=== PATIENT | female | born 1970 | race Caucasian/White ===

== ENCOUNTER 2017-09-23 10:33 | Emergency (ER) | payer OTHER ==
[~2017-09-23] VITALS: Ht 152.4 cm; Wt 81.6 kg
[~2017-09-23 10:33] MED LIST: ADVAIR 100-501 EACH INH; ADVAIR DISKUS 21 DSK INH; ALPRAZOLAM1 M2 PO; CIPRO500 M1 PO; COPAXONE 20M20 MG/ML SC; DILAUDID2 MG PO; LEXAPRO 10MG10 MG PO; LIDODERM 5% PAT1 PAT TOP; MEDROL4 M1 PO; NEURONTIN300 M1 PO; NEXIUM40 M1 PO; OXYCODONE HCL5 M1 PO; PERCOCET 325 MG1 TA2 PO; PREDNISONE5 MG PO; PROAIR HFA8.5 GM INH; SINGULAIR10 M1 PO
[2017-09-23 11:33] LABS: ABSOLUTE BASOPHIL COUNT 0.1 /CUMM (0.0-0.2); ABSOLUTE EOSINOPHIL COUNT 0.1 /CUMM (0.0-0.7); ABSOLUTE LYMPH COUNT 1.5 /CUMM (1.2-3.4); ABSOLUTE MONOCYTE COUNT 0.4 /CUMM (0.10-0.60); BASOPHIL % 0.9 % (0.0-2.0); EOSINOPHIL % 1.4 % (0-5); GRANULOCYTE % 74.7 % (42.2-75.2); MEAN CORPUSCULAR HGB 29.6 PG (27.0-31.0); MEAN CORPUSCULAR HGB CONC 34.7 G/DL (33.0-37.0); MEAN CORPUSCULAR VOLUME 85.3 FL (81.0-99.0); MEAN PLATELET VOLUME 9.1 FL (7.4-10.4); PLATELET COUNT 299 /CUMM (130-400); RBC DISTRIBUTION WIDTH 13.3 % (11.5-14.5); RED BLOOD CELL CT 4.57 /CUMM (4.20-5.40)
--- NOTE | 2017-09-23 11:36 | ED GI/GU/ABDOMINAL COMPLAINT ---
History of Present Illness General Chief Complaint: Abdominal Pain/Flank Pain Stated Complaint: ABD PAIN Source: patient Exam Limitations: no limitations Vital Signs & Intake/Output Vital Signs & Intake/Output Vital Signs Date Time Temp Pulse Resp B/P B/P Pulse O2 O2 Flow FiO2 Mean Ox Delivery Rate 09/23 1251 97.8 78 18 145/85 99 Room Air 09/23 1036 97.7 69 16 97 Room Air Allergies Coded Allergies: hydrocodone (From VICODIN) (Mild, RASH 12/04/15) Iodinated Contrast- Oral and IV Dye (ANAPHYLAXIS 09/23/17) aspirin (asthma 12/04/15) azithromycin (UNKNOWN 12/04/15) cheese (ANAPHYLAXIS 12/04/15) divalproex sodium (From DEPAKOTE) (UNKNOWN 12/04/15) ketorolac (From TORADOL) (asthma 12/04/15) lactose (DAIRY FOODS, CHEESE - ANAPHYLAXIS 12/04/15) latex (SHORTNESS OF BREATH 12/04/15) milk (ANAPHYLAXIS 12/04/15) moxifloxacin (From AVELOX) (UNKNOWN 12/04/15) shellfish derived (ANAPHYLAXIS 12/04/15) sulfamethoxazole (From BACTRIM) (UNKNOWN 12/04/15) tramadol (asthma 12/04/15) trimethoprim (From BACTRIM) (UNKNOWN 12/04/15) Reconcile Medications Albuterol Sulfate (Proair Hfa) 90 MCG HFA.AER.AD 2 PUF INH Q4-6 PRN PRN ASTHMA (Reported) Alprazolam 1 MG TABLET 1 TAB PO TID ANXIETY (Reported) Ciprofloxacin HCl (Cipro) 500 MG TABLET 1 TAB PO BID uti Esomeprazole (Nexium) 40 MG CAPSULE.DR 1 CAP PO DAILY GI (Reported) Fluticasone-Salmeterol (Advair 100-50 Diskus) 100 MCG-50 MCG/DOSE BLST.W.DEV 1 PUF INH BID BREATHING PROBLEMS (Reported) Gabapentin (Neurontin) 300 MG CAPSULE 1 CAP PO TID NEUROPATHY (Reported) Montelukast Sodium (Singulair) 10 MG TABLET 1 TAB PO DAILY ALLERGIES ( Reported) Triage Note: 47 Y/O FEMALE C/O LLQ PAIN RADIATING INTO L FLANK X 1 MONTH. STATES PAIN IS "CONSTANT, SHARP AND AT TIMES ACHY". REPORTS "ITS SWOLLEN IN THAT AREA, WHERE MY OVARY IS". PT REPORTS HX R OVARIAN REMOVAL IN 2016. +NAUSEA. DENIES VOMITING. DENIES HEMATURIA BUT STATES "I FEEL LIKE I HAVE OT GO ALL THE TIME". AFEBRILE. Triage Nurses Notes Reviewed? yes LMP (ages 10-50): hysterectomy, unknown ? N Is pt currently ? No Onset: Gradual Duration: week(s): (6), constant, continues in ED Timing: single episode today Quality/Severity: sharpness, stabbing, throbbing Severity Numbers: 8 Location: left flank, left lower quadrant, suprapubic Radiation: back Activities at Onset: none Prior Abdominal Problems: similar symptoms Past Sexual History: Unobtainable at this time No Modifying Factors: none Modifying Factors: Worsens With: palpation. Associated Symptoms: abdominal pain, urinary frequency HPI: 47-year-old female past medical history of multiple sclerosis, fibromyalgia presents for evaluation of abdominal pain. Patient states she has had pain in her left lower quadrant left flank and left lower back for the past 6 weeks. This pain is gradually been getting worse. The pain is located in the left lower quadrant and radiates in the left flank and left lower back. Described as sharp. She's been taking Tylenol with mild improvement. She does report some associated nausea but no vomiting. She's had intermittent diarrhea and constipation alternating. She also reports she's had urinary frequency and has a history of UTIs. No dysuria. No hematuria. Patient reports that 2 years ago she had a hysterectomy and right-sided OOPHRECTOMY/SALPINGECTOMY related to ovarian cysts. She reports this pain feels similar but on the other side now. She denies any vaginal discharge or bleeding. She's had no fever. (Beau Dukes) Past History Travel History Traveled to [place] past 21 day No Medical History Any Pertinent Medical History? 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 No (Beau Dukes) Review of Systems Review of Systems Constitutional: Reports: no symptoms. EENTM: Reports: no symptoms. Respiratory: Reports: no symptoms. Cardiovascular: Reports: no symptoms. GI: Reports: see HPI, abdominal pain, nausea. Genitourinary: Reports: frequency. Musculoskeletal: Reports: back pain. Skin: Reports: no symptoms. Neurological/Psychological: Reports: no symptoms. Hematologic/Endocrine: Reports: no symptoms. Immunologic/Allergic: Reports: no symptoms. All Other Systems: Reviewed and Negative (Beau Dukes) Physical Exam Physical Exam General Appearance: well developed/nourished, no apparent distress, alert, awake Head: atraumatic, normal appearance Eyes: Bilateral: normal appearance, PERRL, EOMI. Ears, Nose, Throat, Mouth: hearing grossly normal, moist mucous membrane Neck: normal inspection, supple, full range of motion Respiratory: normal breath sounds, chest non-tender, no respiratory distress, lungs clear Cardiovascular: regular rate/rhythm, normal peripheral pulses Peripheral Pulses: 2+ radial (R), 2+ radial (L) Gastrointestinal: normal bowel sounds, soft, no organomegaly, tenderness (LLQ, LEFT PELVIS ) Back: normal inspection, normal range of motion, no vertebral tenderness Extremities: normal range of motion Neurologic/Psych: no motor/sensory deficits, awake, alert, oriented x 3, normal gait, normal mood/affect Skin: intact, normal color, warm/dry Core Measures ACS in differential dx? No Sepsis Present: No Sepsis Focused Exam Completed? No (Beau Dukes) Progress Differential Diagnosis: appendicitis, biliary colic, bowel obstruction, cholecystitis, diverticulitis, inflamm bowel dis, kidney stone, ovarian cyst, ovarian torsion, PID/cervicitis, perforated viscous, SBO, UTI/pyelo Plan of Care: Orders Procedure Date/time Status Add-on Test (ER Only) 09/23 1202 Active CULTURE,URINE 09/23 1122 Active URINALYSIS 09/23 1058 Complete LIPASE 09/23 1058 Complete COMPREHENSIVE METABOLIC PANEL 09/23 1058 Complete CBC WITHOUT DIFFERENTIAL 09/23 1058 Complete AMYLASE 09/23 1058 Complete Laboratory Tests 09/23/17 1122: Anion Gap 15, Estimated GFR > 60, BUN/Creatinine Ratio 16.7, Glucose 91, Calcium 9.5, Total Bilirubin 0.5, AST 19, ALT 24, Alkaline Phosphatase 55, Total Protein 7.1, Albumin 3.9, Globulin 3.2, Albumin/Globulin Ratio 1.2, Amylase 65, Lipase 126, CBC w Diff NO MAN DIFF REQ, RBC 4.57, MCV 85.3, MCH 29.6, MCHC 34.7, RDW 13.3, MPV 9.1, Gran % 74.7, Lymphocytes % 18.6 L, Monocytes % 4.4, Eosinophils % 1.4, Basophils % 0.9, Absolute Granulocytes 6.0, Absolute Lymphocytes 1.5, Absolute Monocytes 0.4, Absolute Eosinophils 0.1, Absolute Basophils 0.1, Urine Color YEL, Urine Clarity CLDY H, Urine pH 6.5, Ur Specific [place] 1.020, Urine Protein NEG, Urine Ketones NEG, Urine Nitrite POS H, Urine Bilirubin NEG, Urine Urobilinogen 0.2, Ur Leukocyte Esterase SMALL H, Ur Microscopic SEDIMENT EXAMINED, Urine RBC RARE, Urine WBC 10-15 H, Ur Epithelial Cells MANY H, Urine Bacteria MANY H, Urine Hemoglobin NEG, Urine Glucose NEG Microbiology 09/23 1122 URINE ROUT: Urine Culture - RECD Patient is here with left lower quadrant and left pelvic pain that has been present for 6 weeks now. She had similar symptoms several years ago related to ovarian cysts. She denies any fever chest pain shortness of breath. She also has urinary frequency. Labs CT scan ordered patient declines pain medication. Urine is showing signs of infection urine culture ordered. Blood work is not showing any significant findings. CT scan shows bilateral adnexal cysts biggest on the left. Ultrasound was ordered for BeTter characterization. Ultrasound shows a left-sided ovarian cyst nothing is seen on the right. No signs of torsion. Reviewed results with patient. Advised her to follow with her GAGE DESIGNER doctor Dr. Whitehead as soon as possible. Continue Tylenol as needed. Patient declines any pain medication prescription. Patient will be given a prescription for antibiotics due to signs of infection in the urine. Discussed return precautions in detail. Patient agrees the plan Diagnostic Imaging: Viewed by Me: CT Scan. Discussed w/RAD: CT Scan. Radiology Impression: PATIENT: MARCUS MELGOZA PRESENT AGE : 47 PATIENT ACCOUNT NO: [id number] : 70 LOCATION: [facility] ORDERING PHYSICIAN: Beau OLIVEROS SERVICE DATE: 09/23/17115 EXAM TYPE: CAT - CT ABD & PELVIS W/O IV CONTRAS EXAMINATION: CT ABDOMEN AND PELVIS WITHOUT CONTRAST CLINICAL INFORMATION: Left lower quadrant pain radiating to the back. COMPARISON : 12/04/2015 TECHNIQUE: Multidetector volumetric imaging was performed from the superior aspect of the liver through the pubic symphysis. Sagittal and coronal reformatted images were obtained on the technologist's workstation. DLP: 543 mGy -cm FINDINGS: LUNG BASES: The visualized lung bases are unremarkable. LIVER, GALLBLADDER, AND BILIARY TREE: The liver is normal in size, shape, and attenuation. No focal hepatic lesion or biliary ductal dilatation is present. The gallbladder is unremarkable with no evidence of radiopaque gallstones, gallbladder wall thickening, or obvious pericholecystic inflammatory changes. PANCREAS: Unremarkable. SPLEEN: Unremarkable. ADRENAL GLANDS: Unremarkable. KIDNEYS AND URETERS: The kidneys are normal in size, shape, and attenuation. No hydronephrosis, hydroureter, or calculi seen. No perinephric stranding. BLADDER: Unremarkable. GASTROINTESTINAL TRACT: The stomach is unremarkable. The small bowel is normal in caliber. No obstruction. No colonic wall thickening or inflammatory change. No free air or free fluid. ABDOMINAL WALL: No significant hernia is appreciated. LYMPH NODES: Normal. VASCULAR: Unremarkable. PELVIC VISCERA: The uterus is not seen, likely absent. Bilateral adnexal cystic lesions. The largest is seen in the left adnexa measuring 4.7 cm. The appearance is similar to the prior study. OSSEOUS STRUCTURES: No acute or suspicious osseous abnormality. Mild degenerative changes of the spine. IMPRESSION: No acute inflammatory changes. Redemonstration of bilateral adnexal cysts, greatest in the left. This is similar to the prior study. No hydronephrosis or nephrolithiasis. DICTATED BY: Hussein PIERRE,Jean Paul DATE/TIME DICTATED:09/23/171220 UTILITY MAINTENANCE WORKER:VALE DATE/TIME TRANSCRIBED:09/23/171220 CONFIDENTIAL, DO NOT COPY WITHOUT APPROPRIATE AUTHORIZATION., PRESENT AGE: 47 PATIENT ACCOUNT NO: [id number] : 70 LOCATION: [facility] ORDERING PHYSICIAN: Beau OLIVEROS SERVICE DATE: 09/23/175 EXAM TYPE: US - US-TRANSVAGINAL EXAMINATION: ULTRASOUND OF THE PELVIS CLINICAL INFORMATION: Left pelvic pain with history of cysts.. COMPARISON: CT from earlier today. Ultrasound from 04/22.. TECHNIQUE: Transabdominal and transvaginal pelvic ultrasound. Doppler evaluation with spectral analysis was performed. A transvaginal study was performed in addition to the transabdominal study which did not yield an adequate examination of the uterus and ovaries due to superimposed distended gas -filled loops of bowel. FINDINGS: Status post hysterectomy. Nabothian cysts are seen at the remaining cervical tissue. The patient is status post right oophorectomy. The left ovary is identified measuring 6.7 x 4 x 4 cm. Normal arterial and venous spectral waveforms are present at the left ovary. There are multiple cysts present. The largest measures 4.6 x 3.2 x 4.1 cm. There is a complex cyst which measures 2.1 x 1.2 x 1.3 cm. Internal echoes are noted without associated Doppler flow. This appearance corresponds to the CT performed earlier in the day as well as to the CT from 12/04/2015. No free fluid. IMPRESSION: Redemonstration of left ovarian cysts, similar appearance to the CT performed earlier in the day and the CT from 12/04/2015. Since the prior ultrasound, the right ovary has been removed. No evidence of active ovarian torsion at this time.. DICTATED BY: Hussein PIERRE,Jean Paul DATE/TIME DICTATED:1348 UTILITY MAINTENANCE WORKER:VALE DATE/TIME TRANSCRIBED:09/23/171348 CONFIDENTIAL, DO NOT COPY WITHOUT APPROPRIATE AUTHORIZATION. <Electronically signed in Other Vendor System> SIGNED BY: Hussein PIERRE,Jean Paul 09/23/17 6107 Initial ED EKG: none (Beau Dukes) Departure Departure Disposition: HOME OR SELF CARE Condition: Stable Clinical Impression Primary Impression: Ovarian cyst Qualifiers: Laterality: left Qualified Code: N83.202 - Unspecified ovarian cyst , left side Secondary Impressions: UTI (urinary tract infection) Qualifiers: Urinary tract infection type: acute cystitis Hematuria presence: without hematuria Qualified Code: N30.00 - Acute cystitis without hematuria Referrals: Fernando PIERRE,Jeffery Araiza (PCP/Family) Ventura PIERRE,Danielle Barr Additional Instructions: rest and drink plently of fluids. take antibiotics for full course. tylenol for pain. follow up with Dr Ventura RUVALCABA. Departure Forms: Customer Survey General Discharge Information Prescriptions: Current Visit Scripts Ciprofloxacin HCl (Cipro) 1 TAB PO BID #14 TAB (Beau Dukes) PA/VENEER JOINTER HELPER Co-Sign Statement Statement: ED Attending supervision documentation- [] I saw and evaluated the patient. I have also reviewed all the pertinent lab results and diagnostic results. I agree with the findings and the plan of care as documented in the PA's/VENEER JOINTER HELPER's documentation. [X] I have reviewed the ED Record and agree with the PA's/VENEER JOINTER HELPER's documentation. [] Additions or exceptions (if any) to the PAs/VENEER JOINTER HELPER's note and plan are summarized below: [] (Roney Garg DO)
--- NOTE | 2017-09-23 12:29 | CT SCAN REPORT ---
EXAMINATION: CT ABDOMEN AND PELVIS WITHOUT CONTRAST CLINICAL INFORMATION: Left lower quadrant pain radiating to the back. COMPARISON: 12/04/2015 TECHNIQUE: Multidetector volumetric imaging was performed from the superior aspect of the liver through the pubic symphysis. Sagittal and coronal reformatted images were obtained on the technologist's workstation. DLP: 543 mGy-cm FINDINGS: LUNG BASES: The visualized lung bases are unremarkable. LIVER, GALLBLADDER, AND BILIARY TREE: The liver is normal in size, shape, and attenuation. No focal hepatic lesion or biliary ductal dilatation is present. The gallbladder is unremarkable with no evidence of radiopaque gallstones, gallbladder wall thickening, or obvious pericholecystic inflammatory changes. PANCREAS: Unremarkable. SPLEEN: Unremarkable. ADRENAL GLANDS: Unremarkable. KIDNEYS AND URETERS: The kidneys are normal in size, shape, and attenuation. No hydronephrosis, hydroureter, or calculi seen. No perinephric stranding. BLADDER: Unremarkable. GASTROINTESTINAL TRACT: The stomach is unremarkable. The small bowel is normal in caliber. No obstruction. No colonic wall thickening or inflammatory change. No free air or free fluid. ABDOMINAL WALL: No significant hernia is appreciated. LYMPH NODES: Normal. VASCULAR: Unremarkable. PELVIC VISCERA: The uterus is not seen, likely absent. Bilateral adnexal cystic lesions. The largest is seen in the left adnexa measuring 4.7 cm. The appearance is similar to the prior study. OSSEOUS STRUCTURES: No acute or suspicious osseous abnormality. Mild degenerative changes of the spine. IMPRESSION: No acute inflammatory changes. Redemonstration of bilateral adnexal cysts, greatest in the left. This is similar to the prior study. No hydronephrosis or nephrolithiasis.
[2017-09-23 12:51] VITALS: BP 145/85
--- NOTE | 2017-09-23 13:57 | ULTRASOUND REPORT ---
EXAMINATION: ULTRASOUND OF THE PELVIS CLINICAL INFORMATION: Left pelvic pain with history of cysts.. COMPARISON: CT from earlier today. Ultrasound from 04/22/2015.. TECHNIQUE: Transabdominal and transvaginal pelvic ultrasound. Doppler evaluation with spectral analysis was performed. A transvaginal study was performed in addition to the transabdominal study which did not yield an adequate examination of the uterus and ovaries due to superimposed distended gas-filled loops of bowel. FINDINGS: Status post hysterectomy. Nabothian cysts are seen at the remaining cervical tissue. The patient is status post right oophorectomy. The left ovary is identified measuring 6.7 x 4 x 4 cm. Normal arterial and venous spectral waveforms are present at the left ovary. There are multiple cysts present. The largest measures 4.6 x 3.2 x 4.1 cm. There is a complex cyst which measures 2.1 x 1.2 x 1.3 cm. Internal echoes are noted without associated Doppler flow. This appearance corresponds to the CT performed earlier in the day as well as to the CT from 12/04/2015. No free fluid. IMPRESSION: Redemonstration of left ovarian cysts, similar appearance to the CT performed earlier in the day and the CT from 12/04/2015. Since the prior ultrasound, the right ovary has been removed. No evidence of active ovarian torsion at this time..
[2017-09-23] MEDS ORDERED: CIPRO500 M1 PO (14:07)
== END 2017-09-23 14:11 ==
LOC: ERH 10:33
PROVIDERS: Physician Assistant
DX: N83.202 Unspecified ovarian cyst, left side (principal); N39.0 Urinary tract infection, site not specified
CPT/HCPCS: 74176; 81001; 87086